=== PATIENT | male | born 1960 | race Caucasian/White ===

== ENCOUNTER 2025-02-01 08:51 | Day surgery (SDC) | payer SELFPAY ==
[2025-02-01] MEDS ORDERED: Propofol 500 MG/50 ML SDV ONE (11:00)
== END 2025-02-01 14:55 | disposition home or self-care (01) ==
LOC: LB.SDS 08:51
PROVIDERS: ATTEND Surgery
DX: Z12.11 Encounter for screening for malignant neoplasm of colon (principal); D12.0 Benign neoplasm of cecum; D12.2 Benign neoplasm of ascending colon; D12.3 Benign neoplasm of transverse colon; D12.4 Benign neoplasm of descending colon; D12.5 Benign neoplasm of sigmoid colon; D12.8 Benign neoplasm of rectum; K63.5 Polyp of colon; K57.30 Diverticulosis of large intestine without perforation or abscess without bleeding; Z79.899 Other long term (current) drug therapy
CPT/HCPCS: J2704; J7030